=== PATIENT | male | born 1990 | race Caucasian/White ===

== ENCOUNTER 2017-08-20 06:05 | Emergency (ER) | payer OTHER ==
[2017-08-20] MEDS: ACETAMINOPHEN 500 MG TAB PO (07:51)
[2017-08-20] MEDS: ONDANSETRON (ODT) 4 MG TAB ODT (07:51)
== END 2017-08-20 09:30 | disposition home or self-care (01) ==
LOC: FTE 06:05
DX: R11.10 Vomiting, unspecified (principal)
CPT/HCPCS: 99283; Z7502